=== PATIENT | male | born 1970 | race Caucasian/White ===

== ENCOUNTER 2020-05-04 17:23 | Emergency (ER) | payer OTHER ==
[2020-05-04] MEDS ORDERED: Iopamidol 370 76% 100 ML VIAL IV ONE (17:24)
[2020-05-04] MEDS ORDERED: Morphine 10 MG/ML VIAL ONE (17:27)
[2020-05-04 17:43] LABS: INR-International Normal Ratio 0.9; PTT 25.7 sec (22.9-36.1); Prothrombin Time 12.1 sec (12.0-14.7)
[2020-05-04 17:50] LABS: Band 5 % (5-11); Eosinophils 1 % (0-10); Hemoglobin 16.1 g/dL (14.0-18.0); Lymphocytes 4 % (21-51); MDiff Complete? YES; Mean Corpuscular Hemoglobin 28.6 pg (27.0-31.0); Mean Corpuscular Volume 92.4 fL (78.0-98.0); Mean Platelet Volume 7.2 fL (7.4-10.4); Monocytes 2 % (0-10); Neutrophil 84 % (42-75); Platelet Count 348 thou/uL (130-400); Platelet Morphology Comment Appears Adequate; RBC Distribution Width 13.2 % (11.5-14.5); RBC Morphology Normal; Reactive Lymphocytes 4 % (0-10); Red Blood Cell (RBC) Count 5.62 mill/uL (4.70-6.10); White Blood Cell (WBC) Count 21.8 thou/uL (4.8-10.8)
[2020-05-04 17:53] LABS: ALT (SGPT) 31 U/L (8-55); AST (SGOT) 31 U/L (5-34); Albumin 4.7 g/dL (3.5-5.0); Alcohol Less than 10 mg/dL (Less than 10); Alkaline Phosphatase 56 U/L (40-110); Anion Gap 13 mmol/L (10-20); BUN (Urea Nitrogen) 13 mg/dL (8.9-20.6); Bilirubin, Total 0.7 mg/dL (0.2-1.2); Calc. Creatinine Clearance 0 mL/min (70-130); Calcium 9.7 mg/dL (7.8-10.44); Carbon Dioxide 26 mmol/L (22-29); Chloride 106 mmol/L (98-107); Estimated GFR-MDRD 66; Globulin 2.5 g/dL (2.4-3.5); Glucose 118 mg/dL (70-105); Potassium 4.3 mmol/L (3.5-5.1); Protein, Total 7.2 g/dL (6.0-8.3); Sodium 141 mmol/L (136-145)
--- NOTE | 2020-05-04 18:41 | CT ---
CT BRAIN 05/04/20 PROVIDED CLINICAL HISTORY: Head injury. FINDINGS: The ventricular system appears normal in size and morphology. There is no evidence for intracranial h emorrhage or mass effect. Left parietal scalp swelling without evidence for skull fracture. IMPRESSION: No evidence for intracranial hemorrhage or skull fracture. POS: [facility]
--- NOTE | 2020-05-04 18:47 | CT ---
CT CERVICAL SPINE: 05/04/20 PROVIDED CLINICAL HISTORY: Head injury. FINDINGS: There is no evidence for fracture or traumatic subluxation. No prevertebral soft tissue swelling appa rent. The visualized lung apices appear clear. There is increased density seen at the anterior aspect of the spinal canal at the C3, C4 and C5 levels, incompletely characterized on the basis of this theresa dy. The degree of image noise makes this difficult to characterize. Differential considerations would in clude disc material and epidural hematoma. IMPRESSION: 1. No evidence for intracranial hemorrhage or mass effect. 2. Apparent increased density within the anterior epidural space involving the C3 through C5 lev els. Differential considerations would include disc material and epidural hematoma. POS: [facility]
--- NOTE | 2020-05-04 18:54 | CT ---
CT CHEST, ABDOMEN AND PELVIS WITH IV CONTRAST: 05/04/20 PROVIDED CLINICAL HISTORY: Trauma. FINDINGS: The heart, pericardium, and great vessels demonstrate no evidence for traumatic abnormality. The lung s are free of significant opacity. No pleural fluid or pneumothorax apparent. The solid abdominal organs demonstrate no evidence for traumatic abnormality. No bowel dilatation, in flammatory fat stranding, free fluid or free air apparent. Bilateral fat containing inguinal hernias. There is superior end plate compression fractures involving T4 and T5 with surrounding paravertebral stranding. Spinal alignment remains normal. No additional fracture is evident. There is a bone island noted involving the right sacrum. IMPRESSION: 1. Compression fractures of T4 and T5. 2. No additional evidence for traumatic abnormality involving the chest, abdomen and pelvis. POS: [facility]
[2020-05-04] MEDS ORDERED: HYDROmorphone 0.5 MG/0.5 ML SYRINGE ONE (18:57)
== END 2020-05-04 19:38 | disposition short-term general hospital (02) ==
LOC: MADERS 17:23
DX: S22.049A Unspecified fracture of fourth thoracic vertebra, initial encounter for closed fracture (principal); S22.059A Unspecified fracture of T5-T6 vertebra, initial encounter for closed fracture; S00.83XA Contusion of other part of head, initial encounter; S19.9XXA Unspecified injury of neck, initial encounter; V80.010A Animal-rider injured by fall from or being thrown from horse in noncollision accident, initial encounter
CPT/HCPCS: 70450; 71260; 72125; 74177; 80053; 80307; 85025; 85610; 96374; 96375; J1170; J2270; Q9967

== ENCOUNTER 2023-12-07 14:39 | Outpatient (CLI) | payer SELFPAY | END 2023-12-07 14:40 | disposition home or self-care (01) | LOC: MADCT 14:39 | PROVIDERS: ATTEND Nurse Practitioner Family | DX: R10.9 Unspecified abdominal pain (principal); K44.9 Diaphragmatic hernia without obstruction or gangrene | CPT/HCPCS: 74160 ==